=== PATIENT | female | born 1965 | race Caucasian/White ===

== ENCOUNTER 2019-11-22 17:12 | Emergency (ER) | payer BC, OTHER ==
[2019-11-22] MEDS ORDERED: Diphtheria,Pertussis(Acell),Tetanus Vaccine 0.5 ML SDV IM ONE (17:42)
[2019-11-22] MEDS ORDERED: Bacitracin Oint 1 GM U/D Packet TOP ONE (17:49)
[2019-11-22] MEDS ORDERED: Lidocaine 1% with EPINEPHrine 1:100,000 50 ML MDV INJECT ONE (17:49)
--- NOTE | 2019-11-22 17:51 | EDM.PDOC ---
ED HPI GENERAL MEDICAL PROBLEM - General Chief Complaint: Laceration Stated Complaint: CUT TO RT KNEE Time Seen by Provider: 11/22/19 17:30 Source of Information: Reports: Patient History Limitations: Reports: No Limitations - History of Present Illness INITIAL COMMENTS - FREE TEXT/NARRATIVE: Vianney is a 53 year old female, presents to the ED today with laceration to right knee sustained by a piece of glass. Patient washed out wound, no foreign body. Patient's DT not up to date. She denies any other injuries. Onset: Today, Sudden - Related Data Allergies Allergy/AdvReac Type Severity Reaction Status Date / Time No Known Allergies Allergy Verified 11/22/19 17:30 Home Meds: Home Meds Progesterone, Micronized [Progesterone] 100 mg PO ASDIRECTED 11/22/19 [History] Thyroid [[place] Thyroid] 30 mg PO DAILY 11/22/19 [History] Past Medical History HEENT History: Reports: Hard of Hearing Endocrine/Metabolic History: Reports: Hypothyroidism - Infectious Disease History Infectious Disease History: Reports: Chicken Pox - Past Surgical History Female Surgical History: Reports: Oophorectomy Social & Family History - Tobacco Use Smoking Status *Q: Never Smoker - Caffeine Use Caffeine Use: Reports: None - Recreational Drug Use Recreational Drug Use: No ED ROS GENERAL - Review of Systems Review Of Systems: Comprehensive ROS is negative, except as noted in HPI. ED EXAM, SKIN/RASH Exam: See Below Exam Limited By: No Limitations General Appearance: Alert, WD/WN, No Apparent Distress Head: Atraumatic Neck: Normal Inspection Respiratory/Chest: No Respiratory Distress Cardiovascular: Regular Rate, Rhythm Back Exam: Normal Inspection Extremities: Normal Inspection Neurological: Alert, Oriented, Normal Cognition Psychiatric: Normal Affect Skin: Warm, Dry, Wound/Incision, Other (right laceration 3 cm, no ligamentous, tendon injury, no FB. strength 5/5, cap refill distal pulses intact) Location, Skin: Lower Extremity, Right Lymphatic: No Adenopathy ED SKIN PROCEDURES - Laceration/Wound Repair Right Knee Appearance: Subcutaneous Distal NVT: Neuro & Vascular Intact, No Tendon Injury Anesthetic Type: Local Local Anesthesia - Lidocaine (Xylocaine): 1% with EPI Local Anesthetic Volume: 5cc Skin Prep: Chlorhexidine (Hibiciens) Exploration/Debridement/Repair: No Foreign Material Found Closed with: Sutures Lac/Wound length In cm: 3 Suture Size: 5-0 # of Sutures: 5 Suture Type: Other (Ethilon) Course - Vital Signs Last Recorded V/S: Last Vital Signs Temp 36.4 C 11/22/19 17:29 Pulse 88 11/22/19 17:29 Resp 18 11/22/19 17:29 BP 119/63 11/22/19 17:29 Pulse Ox 99 11/22/19 17:29 Right knee laceration Suture repair as noted in procedure note. DT updated. Wound care discussed as well as RICE, Ibuprofen/Tylenol per bottle instructions. Suture removal in 5-7 days Avoid significant flexion. Reasons to return discussed, patient agreeable and discharged in stable condition. - Orders/Labs/Meds Orders: Active Orders 24 hr Category Date Time Status Vaccines to be Administered [RC] PER UNIT ROUTINE Care 11/22/19 17:43 Active Meds: Medications Discontinued Medications Generic Name Dose Route Start Last Admin Trade Name Gatitoq PRN Reason Stop Dose Admin Bacitracin 1 dose 11/22/19 17:49 Bacitracin Oint 1 Gm TOP 11/22/19 17:50 ONETIME ONE Diphtheria/Tetanus/Acell Pertussis 0.5 ml 11/22/19 17:42 11/22/19 17:46 Adacel IM 11/22/19 17:43 0.5 ml .ONCE ONE Administration Lidocaine/Epinephrine 5 ml 11/22/19 17:49 Xylocaine 1% With Epinephrine 1:100,000 INJECT 11/22/19 17:50 ONETIME ONE Departure - Departure Time of Disposition: 18:15 Disposition: Home, Self-Care 01 Condition: Good Clinical Impression: Laceration of right knee Qualifiers: Encounter type: initial encounter Qualified Code(s): S81.011A - Laceration without foreign body, right knee, initial encounter - Discharge Information Instructions: Laceration Care, Adult Referrals: PCP,None [Primary Care Provider] - Forms: ED Department Discharge Additional Instructions: Suture removal in 5-7 days Ibuprofen 600 mg every 6 hours as needed for pain, can be alternated with Tylenol 650 mg every 4 hours. Keep clean and dry Bacitracin twice daily for 3 days. Keep elevated as much as possible for 24 hours. Ice for 20 minutes every 2-3 hours for first 24-48 hours. Have a less eventful weekend, nice to meet you! Sepsis Event Note (ED) - Evaluation Sepsis Screening Result: No Definite Risk - Focused Exam Vital Signs: Vital Signs Temp Pulse Resp BP Pulse Ox 11/22/19 17:29 36.4 C 88 18 119/63 99 11/22/19 17:28 36.4 C 88 18 119/63 99 - My Orders Last 24 Hours: My Active Orders 11/22/19 17:43 Vaccines to be Administered [RC] PER UNIT ROUTINE - Assessment/Plan Last 24 Hours: My Active Orders 11/22/19 17:43 Vaccines to be Administered [RC] PER UNIT ROUTINE
== END 2019-11-22 17:56 | disposition home or self-care (01) ==
LOC: JP.ED 17:12
DX: S81.011A Laceration without foreign body, right knee, initial encounter (principal); E03.9 Hypothyroidism, unspecified; Z23 Encounter for immunization; Z79.899 Other long term (current) drug therapy; W25.XXXA Contact with sharp glass, initial encounter
CPT/HCPCS: 12002; 90471; 90715; 99282-25